=== PATIENT | female | born 1940 | race Caucasian/White ===

== ENCOUNTER → 2017-01-31 | Outpatient (CLI) | payer MEDICARE | LOC: KOH-I 14:52 | DX: M15.8 Other polyosteoarthritis (principal); Z88.1 Allergy status to other antibiotic agents; M16.11 Unilateral primary osteoarthritis, right hip; M19.071 Primary osteoarthritis, right ankle and foot | CPT/HCPCS: 73502; 73630 ==

== ENCOUNTER → 2020-08-10 | Outpatient (CLI) | payer MEDICARE ==
[~2020-08-10] MED LIST: BIOTIN PO; ESTRIOL PO; LATANOPROST 0.7.5 ML EYEBOTH; LEVOXYL50 MCG PO; MULTI-VITAMIN1 EACH PO; POLYETHYLENE GL17 GM PO; RESTASIS 0.05%1 EACH EYELF; RHOPRESSA2.5 ML EYERT; TYLENOL EXTRA500 MG PO
== END ==
LOC: KOH-I 10:35
DX: Z00.01 Encounter for general adult medical examination with abnormal findings (principal); M13.851 Other specified arthritis, right hip; M54.41 Lumbago with sciatica, right side; E03.8 Other specified hypothyroidism; M47.816 Spondylosis without myelopathy or radiculopathy, lumbar region; M43.16 Spondylolisthesis, lumbar region; M48.061 Spinal stenosis, lumbar region without neurogenic claudication
CPT/HCPCS: 72110

== ENCOUNTER → 2020-08-11 | Outpatient (CLI) | payer MEDICARE | LOC: KOH-I 16:03 | DX: M16.11 Unilateral primary osteoarthritis, right hip (principal); M54.41 Lumbago with sciatica, right side | CPT/HCPCS: 72170; 73502 ==

== ENCOUNTER → 2020-10-29 | Outpatient (CLI) | payer MEDICARE | LOC: MRI 11:06 | DX: M54.41 Lumbago with sciatica, right side (principal); S32.040A Wedge compression fracture of fourth lumbar vertebra, initial encounter for closed fracture; S32.010A Wedge compression fracture of first lumbar vertebra, initial encounter for closed fracture; M47.816 Spondylosis without myelopathy or radiculopathy, lumbar region; M48.061 Spinal stenosis, lumbar region without neurogenic claudication | CPT/HCPCS: 72148 ==

== ENCOUNTER → 2020-11-24 | Outpatient (CLI) | payer MEDICARE | LOC: EXRD 11:22 | DX: M81.0 Age-related osteoporosis without current pathological fracture (principal); M85.88 Other specified disorders of bone density and structure, other site | CPT/HCPCS: 77080 ==

== ENCOUNTER → 2020-11-28 | Outpatient (CLI) | payer MEDICARE ==
[2020-11-28 14:16] LABS: BUN/CREATININE RATIO 14 (0-10)
== END ==
LOC: OPSV2 12:30
PROVIDERS: Orthopaedic Surgery
DX: Z01.818 Encounter for other preprocedural examination (principal); M48.56XA Collapsed vertebra, not elsewhere classified, lumbar region, initial encounter for fracture; R00.1 Bradycardia, unspecified
CPT/HCPCS: 36415; 80048; 93005

== ENCOUNTER → 2020-12-07 | Day surgery (SDC) | payer MEDICARE ==
[~2020-12-07] VITALS: Ht 167.6 cm; Wt 74.4 kg
== END | disposition home or self-care (01) ==
LOC: OR 06:06
PROVIDERS: Orthopaedic Surgery
PROC: 0QB03ZX Excision of Lumbar Vertebra, Percutaneous Approach, Diagnostic (ICD-10-PCS; 2020-12-07)
PROC: 0QU03JZ Supplement Lumbar Vertebra with Synthetic Substitute, Percutaneous Approach (ICD-10-PCS; principal; 2020-12-07 07:30)
DX: M80.88XA Other osteoporosis with current pathological fracture, vertebra(e), initial encounter for fracture (principal); M47.816 Spondylosis without myelopathy or radiculopathy, lumbar region; E03.9 Hypothyroidism, unspecified; R07.89 Other chest pain; I49.8 Other specified cardiac arrhythmias; K44.9 Diaphragmatic hernia without obstruction or gangrene; H40.9 Unspecified glaucoma; Z20.822 Contact with and (suspected) exposure to COVID-19; Z90.49 Acquired absence of other specified parts of digestive tract; Z87.42 Personal history of other diseases of the female genital tract; Z85.828 Personal history of other malignant neoplasm of skin; Z96.698 Presence of other orthopedic joint implants; Z96.1 Presence of intraocular lens; Z88.1 Allergy status to other antibiotic agents; Z79.890 Hormone replacement therapy; Z79.899 Other long term (current) drug therapy
CPT/HCPCS: 93005; 93270; C1713; J0690; J1100; J1170; J2405; J2704; J3010; J7120; Q9967

== ENCOUNTER → 2020-12-12 | Outpatient (CLI) | payer MEDICARE ==
[~2020-12-12] VITALS: Ht 167.6 cm; Wt 74.4 kg
== END ==
LOC: OPSV 09:41
DX: S32.009A Unspecified fracture of unspecified lumbar vertebra, initial encounter for closed fracture (principal); M81.0 Age-related osteoporosis without current pathological fracture
CPT/HCPCS: 96365; J3489

== ENCOUNTER → 2020-12-19 | Outpatient (CLI) | payer MEDICARE | LOC: ECHO 09:42 | DX: R07.9 Chest pain, unspecified (principal); I27.20 Pulmonary hypertension, unspecified; I08.2 Rheumatic disorders of both aortic and tricuspid valves | CPT/HCPCS: ECHO; 93306 ==

== ENCOUNTER → 2021-02-23 | Outpatient (CLI) | payer MEDICARE | LOC: HEART 5 08:34 | DX: I20.9 Angina pectoris, unspecified (principal) | CPT/HCPCS: 78452; A9502; J2785 ==

== ENCOUNTER → 2021-03-20 | Outpatient (CLI) | payer MEDICARE | LOC: MAMO 15:00 | DX: Z12.31 Encounter for screening mammogram for malignant neoplasm of breast (principal) | CPT/HCPCS: 77063; 77067 ==

== ENCOUNTER → 2021-12-04 | Outpatient (CLI) | payer MEDICARE ==
[~2021-12-04] VITALS: Ht 167.6 cm; Wt 71.2 kg
== END ==
LOC: OPSV 13:46
DX: M81.0 Age-related osteoporosis without current pathological fracture (principal)
CPT/HCPCS: 96365; J3489

== ENCOUNTER → 2022-02-01 | Outpatient (CLI) | payer MEDICARE | LOC: KOH-I 14:14 | DX: I65.23 Occlusion and stenosis of bilateral carotid arteries (principal); I77.89 Other specified disorders of arteries and arterioles | CPT/HCPCS: 93880 ==

== ENCOUNTER → 2022-02-12 | Outpatient (CLI) | payer MEDICARE | LOC: LAB 13:14 | DX: U07.1 COVID-19 (principal); J02.9 Acute pharyngitis, unspecified | CPT/HCPCS: U0002 ==